=== PATIENT | male | born 1960 | race Hispanic/Latino ===

== ENCOUNTER → 2018-06-25 | Day surgery (SDC) | payer OTHER ==
[~2018-06-25] MED LIST: BALANCED SALT SOLN (OPTH) 15 ML BTL IO ONE; FENTANYL CITRATE/PF 100MCG/2 ML INJ ONE; LIDOCAINE 2%/ EPINEPHRINE 20ML MDV ONE; LISINOPRIL10 MG PO; METFORMIN HCL850 MG PO; MIDAZOLAM HCL 2 MG/2 ML VIAL ONE; NEOMYCIN/POLYMYXIN/DEX (OPTH) 3.5 GM TUBE ONE; OR PHACO EYE KIT ONE
--- OUTSIDE RECORDS SUMMARY | 2018-06-25 12:34 | XMS REPORT ---
[facility] Phone Unavailable Care Team Providers Care Holistic Health Practitioner Name Role Phone Unavailable Unavailable Problems This patient has no known problems. Allergies, Adverse Reactions, Alerts This patient has no known allergies or adverse reactions. Medications This patient has no known medications. Encounters Start Date/Time End Date/Time Encounter Type Admission Type Attending [facility] Care Department Encounter ID 2017-11-02 00:00:00 2017-11-02 00:00:00 Outpatient [facility] [id number] 2017-05-24 22:36:04 2017-05-24 22:36:04 Emergency [facility] [id number] 2017-05-24 11:00:25 2017-05-24 11:00:25 Emergency [facility] [id number] 2017-05-24 09:47:54 2017-05-24 09:47:54 Emergency [facility] [id number] 2017-02-13 00:00:00 2017-02-13 00:00:00 Outpatient [facility] [id number] 2016-12-11 10:46:52 2016-12-11 10:46:52 Outpatient [facility] [id number] 2016-11-10 11:28:26 2016-11-10 11:28:26 Outpatient [facility] [id number] 2016-08-25 10:42:29 2016-08-25 10:42:29 Outpatient [facility] [id number]
[2018-06-25 15:45] VITALS: BP 140/75
--- NOTE | 2018-07-12 20:24 | Operative Report ---
DATE OF PROCEDURE: June 25, 2018 PREOPERATIVE DIAGNOSIS: Large nasal pterygium, left eye. POSTOPERATIVE DIAGNOSIS: Large nasal pterygium, left eye. OPERATIONS PERFORMED 1. Pterygium excision, left eye nasal. 2. Amniotic membrane graft placement, left eye nasal. 3. Superficial keratectomy, left eye nasal. 4. Mitomycin-C 0.25 mg per mL, left eye nasal, 60 seconds. ANESTHESIA: MAC. COMPLICATIONS: None. PROCEDURE: The patient was taken to the operating room where a tetracaine drops placed on the eye. The patient's eye was prepped and draped in the usual sterile opthalmic way. A lid speculum was placed in the left eye. A 6-0 sterile stay suture was placed at the limbus and the pterygium was localized and very carefully removed away from the sclera and cornea using 0.12 forceps and Sea scissors. Once it was removed, it was sent to pathology. Wet-Field cautery was used to control any bleeding. A bur was used to perform a superficial keratectomy and remove the residual debris from the cornea. Mitomycin 0.25 mg per mL was soaked in a cottonoid, placed at the edge of the conjunctiva for 60 seconds and then copious amounts of BSS solution were used to irrigate this of. Once this was done, the amniotic membrane measured 10 x 15 mm and was cut to size and secured using fibrin and thrombin glue. Once this was done, patient had Maxitrol ointment patch, Ibarra shield, and Vigamox drops placed on the eye and the patient was sent home. The patient will be seen in my office tomorrow. The serial number for the graft was [id number]. Job#: [id number] DAVE
== END | disposition home or self-care (01) ==
LOC: OR 12:33
PROVIDERS: ATTEND Ophthalmology
DX: H11.052 Peripheral pterygium, progressive, left eye (principal); I10 Essential (primary) hypertension; E11.9 Type 2 diabetes mellitus without complications; Z79.84 Long term (current) use of oral hypoglycemic drugs
CPT/HCPCS: 36415; 65426; 82948; 88304; J2001; J2250; V2790